=== PATIENT | male | born 1980 | race Two or more races ===

== ENCOUNTER 2016-12-27 17:37 | Emergency (ER) | payer OTHER ==
[2016-12-27 17:44] VITALS: BP 134/76; PULSE 86; RESP 18; TEMP 98.4
[2016-12-27] MEDS ORDERED: diphenhydrAMINE 50 MG CAP PO STA (18:02)
[2016-12-27] MEDS ORDERED: FAMOTIDINE 20 MG TAB PO STA (18:02)
[2016-12-27] MEDS ORDERED: methylPREDNISolone SOD SUCCI 125 MG/2 ML VIAL IM ONE (18:02)
--- NOTE | 2016-12-27 18:07 | ED ---
Skin/Abscess/FB HPI - General Chief complaint: Skin/Abscess/Foreign Body Stated complaint: insect bite Time Seen by Provider: 12/27/16 17:49 Source: patient, RN notes reviewed Mode of arrival: ambulatory Limitations: no limitations - History of Present Illness Initial comments: 36-year-old male presents emergency Department chief left arm redness and swelling. Patient states he saw some sort of black flying insect which was fairly large in size laying on his left arm and bite him several times. Patient states that it felt like a stinging sensation. He states there is no she's had increased redness and swelling. Patient denies any fever, chills, pain 9 his left axilla. Patient states she has known drug ALLERGIES and has no known ALLERGIES to environmental issues. Patient states that he did not take any Benadryl or anything for his discomfort this time. Patient states never had a reaction like this in the past. Patient offers no other complaints. He denies any shortness of breath or difficulty swallowing. - Related Data Previous Rx's Medication Instructions Recorded Cephalexin [Keflex] 500 mg PO Q6HR #40 cap 12/27/16 diphenhydrAMINE [Benadryl] 50 mg PO QID PRN #20 capsule 12/27/16 methylPREDNISolone [Medrol Dose 4 mg PO DIRECTED #1 pack 12/27/16 Pack] Allergies Allergy/AdvReac Type Severity Reaction Status Date / Time No Known Allergies Allergy Verified 12/27/16 17:52 Review of Systems ROS Statement: Those systems with pertinent positive or pertinent negative responses have been documented in the HPI. ROS Other: All systems not noted in ROS Statement are negative. Past Medical History Past Medical History: No Reported History History of Any Multi-Drug Resistant Organisms: None Reported Past Surgical History: Orthopedic Surgery Past Psychological History: No Psychological Hx Reported Smoking Status: Current every day smoker Past Alcohol Use History: None Reported Past Drug Use History: None Reported General Exam Limitations: no limitations General appearance: alert, in no apparent distress Head exam: Present: atraumatic, normocephalic, normal inspection Respiratory exam: Present: normal lung sounds bilaterally. Absent: respiratory distress, wheezes, rales, rhonchi, stridor Cardiovascular Exam: Present: regular rate, normal rhythm, normal heart sounds. Absent: systolic murmur, diastolic murmur, rubs, gallop, clicks Extremities exam: Present: other (Left forearm there is erythema extending from the proximal forearm just distal to the elbow. It is warm and slightly swollen patient has full strength. Pulses equal bilaterally there is an open punctate lesion noted) Skin exam: Present: warm, dry Course Vital Signs 12/27/16 17:41 Temperature 98.4 F Pulse Rate 86 Respiratory 18 Rate Blood Pressure 134/76 O2 Sat by Pulse 99 Oximetry Medical Decision Making - Medical Decision Making 36-year-old male presented for left arm redness, swelling. Patient symptoms are related to an insect bite. Also this probably ALLERGIC in nature and pelvis concerns for possible secondary infection. Patient was placed on antibiotics at this time and also advised to continue Benadryl and was placed on steroids. Disposition Clinical Impression: Insect bite, Pain and swelling of left forearm, Left arm cellulitis Disposition: HOME SELF-CARE Condition: Stable Instructions: Insect Bite or Sting (ED), Cellulitis (ED) Additional Instructions: Please return to the Emergency Department if symptoms worsen or any other concerns. Prescriptions: Cephalexin [Keflex] 500 mg PO Q6HR #40 cap diphenhydrAMINE [Benadryl] 50 mg PO QID PRN #20 capsule PRN Reason: allergic symptoms methylPREDNISolone [Medrol Dose Pack] 4 mg PO DIRECTED #1 pack Referrals: None,Stated [Primary Care Provider] - 1-2 days Time of Disposition: 18:07
== END 2016-12-27 18:35 | disposition home or self-care (01) ==
LOC: EC 17:37
DX: S50.862A Insect bite (nonvenomous) of left forearm, initial encounter (principal); L03.114 Cellulitis of left upper limb; F17.200 Nicotine dependence, unspecified, uncomplicated; W57.XXXA Bitten or stung by nonvenomous insect and other nonvenomous arthropods, initial encounter
CPT/HCPCS: 99282; 96372; J2930